=== PATIENT | female | born 1970 ===

== ENCOUNTER → 2018-01-15 | Outpatient (REF) ==
--- NOTE | 2018-01-15 12:43 | Diagnostic Imaging Report ---
INDICATION: Injury to left ankle. AP, oblique, and lateral views of the left ankle are obtained. No fracture or acute bony abnormality is seen. Joint spaces are unremarkable. IMPRESSION: Negative left ankle. Dictated by: Dictated on workstation # [id number]
== END | disposition home or self-care (01) ==
LOC: RAD 11:39
PROVIDERS: ATTEND Nurse Practitioner Family
CPT/HCPCS: 73610